=== PATIENT | male | born 2000 | race Two or more races ===

== ENCOUNTER 2025-05-11 19:36 | Emergency (ER) | payer OTHER ==
[~2025-05-11] VITALS: Ht 170.2 cm; Wt 67.0 kg
[2025-05-11 20:08] VITALS: O2SAT 100
[2025-05-11 21:12] LABS: BASOPHILS % 1.3 % (0.0-2.0); EOSINOPHILS % 4.0 % (0.0-5.0); HEMATOCRIT. 44.0 % (42.0-52.0); HEMOGLOBIN. 15.4 g/dL (14.0-18.0); LYMPHOCYTES % 20.2 % (20.0-50.0); MEAN PLATELET VOLUME 8.8 fl (7.4-10.4); MONOCYTES % 7.3 % (2.0-8.0); NEUTROPHILS % 67.2 % (40.0-76.0); PLATELET 404 x1000/uL (130-400); RED BLOOD CELL COUNT 5.12 mill/uL (4.7-6.1); RED CELL DISTRIBUTION WIDTH 13.3 % (11.6-14.6)
[2025-05-11 21:21] LABS: CREATININE 1.0 mg/dL (0.6-1.3); UREA NITROGEN BLOOD 6 mg/dL (9-23)
[2025-05-11 21:22] LABS: TROPONIN I HIGH SENSITIVITY < 4 ng/L (3.0-53)
[2025-05-11 22:14] VITALS: BP 126/86; PULSE 95; RESP 14; TEMP 36.8; O2SAT 99
== END 2025-05-11 22:15 | disposition home or self-care (01) ==
LOC: ER 19:36
DX: R53.1 Weakness (principal); J45.909 Unspecified asthma, uncomplicated
CPT/HCPCS: 36415; 80048; 84484; 85025; 99283